=== PATIENT | female | born 1995 | race American Indian/Alaskan Native ===

== ENCOUNTER 2017-10-18 21:14 | Emergency (ER) | payer OTHER ==
[2017-10-19] MEDS ORDERED: LIDOCAINE VISCOUS 2% PO ONE (03:10)
--- NOTE | 2017-10-19 03:22 | Emergency Department Report ---
ED ENT HPI - General Chief complaint: Nausea/Vomiting/Diarrhea Stated complaint: THROWING UP BLOOD Time Seen by Provider: 10/19/17 02:59 Source: patient Mode of arrival: Ambulatory Limitations: No Limitations - History of Present Illness Initial comments: This is a 22-year-old female nontoxic, well nourished in appearance, no acute signs of distress presents to the ED with c/o of sore throat 1 week. Patient stated she was seen by her primary care doctor and diagnosed her with strep throat and patient was prescribed amoxicillin. Stated symptoms are getting worse. Today after taking Motrin and she stated she was drinking Gatorade and then started to vomit and so a small ting sputum which she believes was blood. Patient asked that denies any vomiting or hemoptysis. Denies any chest pain, shortness of breath, fever, chills, nausea, vomiting, headache or stiff neck. Patient stated she does have hoarseness. Patient denies difficulty breathing. Patient has decreased by mouth intake due to sore throat. patient denies any allergies. Past medical history includes hypertension. MD complaint: sore throat -: week(s) (1) Location: throat Severity: mild Severity scale (0 -10): 8 Quality: aching Consistency: constant Improves with: none Worsens with: swallowing Associated Symptoms: pain with swallowing, sore throat. denies: fever, cough, gum swelling, toothache, tinnitus, hearing loss, discharge from ear, rhinorrhea - Related Data Previous Rx's Medication Instructions Recorded Last Taken Type Acetamin/Codeine 120-12Mg/5 ml 10 ml PO Q6H PRN #6 oz 06/03/14 06/07/14 Rx [Tylenol/Codeine] Amoxicillin [Trimox CAP] 500 mg PO Q8H #30 capsule 06/03/14 06/07/14 Rx methylPREDNISolone [Medrol Dose 4 mg PO DAILY #1 packet 06/03/14 06/07/14 Rx Facundo] Clindamycin [Clindamycin CAP] 300 mg PO Q8H #20 cap 06/07/14 Unknown Rx oxyCODONE /ACETAMINOPHEN [Percocet 1 tab PO Q6HR PRN #14 tablet 06/07/14 Unknown Rx 5/325 mg] Ondansetron HCl 4 mg PO PRN PRN #10 solution 05/22/16 Unknown Rx Amoxicillin/K Clav Tab [Augmentin 1 tab PO Q12HR #20 tab 10/19/17 Unknown Rx 875 mg] Nystas/Diphen/Xyl Visc/Mylanta 15 ml MM Q6H 15 [place] [facility] [place] Rx [Magic Mouthwash] Allergies Allergy/AdvReac Type Severity Reaction Status Date / Time No Known Allergies Allergy Verified 06/07/14 11:02 ED Dental HPI - General Chief complaint: Nausea/Vomiting/Diarrhea Stated complaint: THROWING UP BLOOD Time Seen by Provider: 10/19/17 02:59 Source: patient Mode of arrival: Ambulatory Limitations: No Limitations - Related Data Previous Rx's Medication Instructions Recorded Last Taken Type Acetamin/Codeine 120-12Mg/5 ml 10 ml PO Q6H PRN #6 oz 06/03/14 06/07/14 Rx [Tylenol/Codeine] Amoxicillin [Trimox CAP] 500 mg PO Q8H #30 capsule 06/03/14 06/07/14 Rx methylPREDNISolone [Medrol Dose 4 mg PO DAILY #1 packet 06/03/14 06/07/14 Rx Facundo] Clindamycin [Clindamycin CAP] 300 mg PO Q8H #20 cap 06/07/14 Unknown Rx oxyCODONE /ACETAMINOPHEN [Percocet 1 tab PO Q6HR PRN #14 tablet 06/07/14 Unknown Rx 5/325 mg] Ondansetron HCl 4 mg PO PRN PRN #10 solution 05/22/16 Unknown Rx Amoxicillin/K Clav Tab [Augmentin 1 tab PO Q12HR #20 tab 10/19/17 Unknown Rx 875 mg] Nystas/Diphen/Xyl Visc/Mylanta 15 ml MM Q6H 15 Days [facility] 10/19/17 Unknown Rx [Magic Mouthwash] Allergies Allergy/AdvReac Type Severity Reaction Status Date / Time No Known Allergies Allergy Verified 06/07/14 11:02 ED Review of Systems ROS: Stated complaint: THROWING UP BLOOD Other details as noted in HPI Constitutional: denies: chills, fever Eyes: denies: eye pain, eye discharge, vision change ENT: throat pain. denies: ear pain Respiratory: denies: cough, shortness of breath, wheezing Cardiovascular: denies: chest pain, palpitations Endocrine: no symptoms reported Gastrointestinal: denies: abdominal pain, nausea, diarrhea Genitourinary: denies: urgency, dysuria, discharge Musculoskeletal: denies: back pain, joint swelling, arthralgia Skin: denies: rash, lesions Neurological: denies: headache, weakness, paresthesias Psychiatric: denies: anxiety, depression Hematological/Lymphatic: denies: easy bleeding, easy bruising ED Past Medical Hx - Past Medical History Previous Medical History?: No Hx Hypertension: No - Surgical History Past Surgical History?: No - Social History Smoking Status: Current Every Day Smoker Substance Use Type: Marijuana - Medications Home Medications: Home Medications Medication Instructions Recorded Confirmed Last Taken Type Acetamin/Codeine 120-12Mg/5 ml 10 ml PO Q6H PRN #6 oz 06/03/14 06/07/14 Rx [Tylenol/Codeine] Amoxicillin [Trimox CAP] 500 mg PO Q8H #30 capsule 06/03/14 06/07/14 06/07/14 Rx methylPREDNISolone [Medrol Dose 4 mg PO DAILY #1 packet 06/03/14 06/07/14 Rx Facundo] Clindamycin [Clindamycin CAP] 300 mg PO Q8H #20 cap 06/07/14 Unknown Rx oxyCODONE /ACETAMINOPHEN [Percocet 1 tab PO Q6HR PRN #14 tablet 06/07/14 Unknown Rx 5/325 mg] Ondansetron HCl 4 mg PO PRN PRN #10 solution 05/22/16 Unknown Rx Amoxicillin/K Clav Tab [Augmentin 1 tab PO Q12HR #20 tab 10/19/17 Unknown Rx 875 mg] Nystas/Diphen/Xyl Visc/Mylanta 15 ml MM Q6H 15 Days [facility] 10/19/17 Unknown Rx [Magic Mouthwash] ED Physical Exam - General Limitations: No Limitations General appearance: alert, in no apparent distress - Head Head exam: Present: atraumatic, normocephalic, normal inspection - Eye Eye exam: Present: normal appearance, PERRL, EOMI. Absent: scleral icterus, conjunctival injection, nystagmus, periorbital swelling, periorbital tenderness Pupils: Present: normal accommodation - ENT ENT exam: Present: mucous membranes moist, TM's normal bilaterally, normal external ear exam - Expanded ENT Exam Expanded Ear exam: Present: normal external inspection Mouth exam: Present: normal external inspection, tongue normal. Absent: drooling, trismus, muffled voice, tongue elevation, laceration Teeth exam: Present: normal inspection Throat exam: Positive: tonsillar erythema, tonsillomegaly (2+), tonsillar exudate, other (Uvula midline. ) - Neck Neck exam: Present: normal inspection, full ROM. Absent: tenderness, meningismus, lymphadenopathy, thyromegaly - Respiratory Respiratory exam: Present: normal lung sounds bilaterally. Absent: respiratory distress, wheezes, rales, rhonchi, stridor, chest wall tenderness, accessory muscle use, decreased breath sounds, prolonged expiratory - Cardiovascular Cardiovascular Exam: Present: regular rate, normal rhythm, normal heart sounds. Absent: bradycardia, tachycardia, irregular rhythm, systolic murmur, diastolic murmur, rubs, gallop - GI/Abdominal GI/Abdominal exam: Present: soft, normal bowel sounds. Absent: distended, tenderness, guarding, rebound, rigid, diminished bowel sounds - Rectal Rectal exam: Present: deferred - Extremities Exam Extremities exam: Present: normal inspection, full ROM, normal capillary refill. Absent: tenderness, pedal edema, joint swelling, calf tenderness - Back Exam Back exam: Present: normal inspection, full ROM. Absent: tenderness, CVA tenderness (R), CVA tenderness (L), muscle spasm, paraspinal tenderness, vertebral tenderness, rash noted - Neurological Exam Neurological exam: Present: alert, oriented X3, CN II-XII intact, normal gait, reflexes normal - Psychiatric Psychiatric exam: Present: normal affect, normal mood - Skin Skin exam: Present: warm, dry, intact, normal color. Absent: rash ED Course Vital Signs 10/18/17 22:32 Temperature 99.2 F Pulse Rate 83 Respiratory 18 Rate Blood Pressure 136/70 O2 Sat by Pulse 100 Oximetry - Reevaluation(s) Reevaluation #1: 10/19/17 03:23 Patient is speaking in full sentences with no signs of distress noted. ED Medical Decision Making - Lab Data Result diagrams: 10/19/17 03:24 10/19/17 03:24 - Medical Decision Making This is a 22-year-old female that presents with tonsillitis with exudate. Patient is stable and was examined by me. Patient received viscous lidocaine in the ED patient states symptoms of sore throat is improving. CBC, BMP, test obtained. CT contrast of his neck has been obtained to rule out tonsillar abscess and the radiologist with no abscess but positive for tonsillitis. Patient notified of CT results. No further questions noted by the patient. Patient discharged with Augmentin and patient was instructed to stop taking amoxicillin. Patient received Rocephin 1 g in the ed. Patient was instructed Follow-up with a primary care doctor in 3-5 days or if symptoms worsen and continue return to emergency room as soon as possible. At time time of discharge, the patient does not seem toxic or ill in appearance. No acute signs of distress noted. Patient agrees to discharge treatment plan of care. No further questions noted by the patient. Critical care attestation.: If time is entered above; I have spent that time in minutes in the direct care of this critically ill patient, excluding procedure time. ED Disposition Clinical Impression: Tonsillitis with exudate Disposition: DC- TO HOME OR SELFCARE Is pt being admited?: No Does the pt Need Aspirin: No Condition: Stable Instructions: Amoxicillin/Clavulanate Potassium (By mouth), Tonsillitis (ED) Additional Instructions: Follow-up with a primary care doctor/ENT doctor in 3-5 days or if symptoms worsen and continue return to emergency room as soon as possible. Stop taking amoxicillin and take Augmentin as prescribed. Prescriptions: Amoxicillin/K Clav Tab [Augmentin 875 mg] 1 tab PO Q12HR #20 tab Nystas/Diphen/Xyl Visc/Mylanta [Magic Mouthwash] 15 ml MM Q6H 15 [place] [facility] [place]: PRIMARY MD JOSEMANUEL [Primary Care Provider] - 3-5 Days SHERRI FLORES MD [Staff Physician] - 3-5 Days NEISHA JAMES MD [Staff Physician] - 3-5 Days [facility] [Outside] - 3-5 Days [facility] [Outside] - 3-5 Days Forms: Work/School Release Form(ED)
[2017-10-19] MEDS ORDERED: ROCEPHIN/NS 1 GM/50 ML 1 GM/50 ML BAG IV ONE (03:27)
[2017-10-19] MEDS ORDERED: ROCEPHIN 1 GM in NACL 0.9% 20 ML IV ONE (03:45)
[2017-10-19 03:50] LABS: Basophils % (Auto) 0.3 % (0.0-1.8); Eosinophils % (Auto) 0.1 % (0.0-4.3); Hematocrit 36.3 % (30.3-42.9); Hemoglobin 11.6 gm/dl (10.1-14.3); Mean Corpuscular HGB Conc 32 % (30-34); Mean Corpuscular Volume 75 fl (79-97); Platelet Count 282 K/mm3 (140-440); Red Blood Count 4.82 M/mm3 (3.65-5.03); Red Cell Distribution Width 16.1 % (13.2-15.2); White Blood Count 11.3 K/mm3 (4.5-11.0)
[2017-10-19 03:57] LABS: Mean Corpuscular Hemoglobin 24 pg (28-32)
[2017-10-19 04:10] LABS: Anion Gap 20 mmol/L; BUN/Creatinine Ratio 10; Blood Urea Nitrogen 7 mg/dL (7-17); Calcium 9.3 mg/dL (8.4-10.2); Carbon Dioxide 24 mmol/L (22-30); Chloride 99.9 mmol/L (98-107); Glucose 92 mg/dL (65-100); Potassium 4.2 mmol/L (3.6-5.0); Sodium 140 mmol/L (137-145)
[2017-10-19] MEDS ORDERED: NACL 0.9% 500 ML 500 ML IV ONE (04:35)
[2017-10-19] MEDS ORDERED: NACL ONE (05:00)
--- NOTE | 2017-10-19 05:57 | Cat Scan Report ---
FINAL REPORT EXAM: CT NECK W CON HISTORY: SORE THROAT R/O TONSIL ABSCESS TECHNIQUE: CT images are acquired through the neck following intravenous administration of contrast. Transaxial , coronal and sagittal reformations are provided. PRIORS: None. FINDINGS: There is enlargement of the left slightly greater than right palatine tonsil with heterogeneous enhancement. No focal fluid collection is identified. The central airway remains patent. Major vasculature of the neck is well opacified and also appears patent. Scattered bilateral reactive cervical lymph nodes are noted. The suprahyoid mucosal spaces of the neck are otherwise unremarkable. Intact cervical spine with normal alignment. Imaged portion of the brain is grossly unremarkable. The lung apices are also unremarkable. IMPRESSION: Enlargement and heterogeneous enhancement of the palatine tonsils is consistent with tonsillitis. No abscess formation, airway or vascular complication identified.
[2017-10-19 07:16] VITALS: BP 134/58
== END 2017-10-19 07:15 | disposition home or self-care (01) ==
LOC: ED 21:14
DX: J03.90 Acute tonsillitis, unspecified (principal); F17.200 Nicotine dependence, unspecified, uncomplicated; F12.10 Cannabis abuse, uncomplicated
CPT/HCPCS: 36415; 70491; 80048; 84703; 85025; 96361; 96374; 99284; J0696; J7040; Q9967

== ENCOUNTER 2019-03-11 12:03 | Emergency (ER) | payer SELFPAY ==
--- NOTE | 2019-03-11 12:49 | Emergency Department Report ---
Chief Complaint: Sore Throat Stated Complaint: TONSILS SWOLLEN/PAIN Time Seen by Provider: 03/11/19 12:46 - HPI History of Present Illness: Pt presents with right sided tonsillar swelling that began 3 days ago hx of peritonsillar abscess pain with swallowing spitting out secretions no N/V no fever no PMHx no allergies - Exam Vital Signs: Vital Signs 03/11/19 12:43 Temperature 99.0 F Pulse Rate 81 Respiratory 16 Rate Blood Pressure 133/72 [Left] O2 Sat by Pulse 100 Oximetry MSE screening note: Focused history and physical exam performed. Due to findings the following was ordered: labs, rapid strep, CT with contrast ED Disposition for MSE Condition: Stable
[2019-03-11 13:35] LABS: Basophils % (Auto) 0.6 % (0.0-1.8); Eosinophils % (Auto) 0.1 % (0.0-4.3); Hematocrit 38.2 % (30.3-42.9); Lymphocytes # (Auto) 1.7 K/mm3 (1.2-5.4); Lymphocytes % (Auto) 21.2 % (13.4-35.0); Mean Corpuscular HGB Conc 31 % (30-34); Monocytes # (Auto) 0.8 K/mm3 (0.0-0.8); Platelet Count 302 K/mm3 (140-440); Red Blood Count 5.56 M/mm3 (3.65-5.03)
[2019-03-11 13:38] LABS: Mean Corpuscular Volume 69 fl (79-97); Red Cell Distribution Width 20.1 % (13.2-15.2)
--- NOTE | 2019-03-11 14:41 | Emergency Department Report ---
ED ENT HPI - General Chief complaint: Sore Throat Stated complaint: TONSILS SWOLLEN/PAIN Time Seen by Provider: 03/11/19 12:46 Source: patient Mode of arrival: Ambulatory Limitations: No Limitations - History of Present Illness Initial comments: This is a 23-year-old female who presents to ED complaining of throat pain x couple of days, she describes pain as throbbing AND CONSTANT with pain with swallowing she admits fever now resolved but denies chills,cp, cough,n,v,abd pain MD complaint: sore throat - Related Data Previous Rx's Medication Instructions Recorded Last Taken Type Acetamin/Codeine 120-12Mg/5 ml 10 ml PO Q6H PRN #6 oz 06/03/14 06/07/14 Rx [Tylenol/Codeine] Amoxicillin [Trimox CAP] 500 mg PO Q8H #30 capsule 06/03/14 06/07/14 Rx methylPREDNISolone [Medrol Dose 4 mg PO DAILY #1 packet 06/03/14 06/07/14 Rx Facundo] oxyCODONE /ACETAMINOPHEN [Percocet 1 tab PO Q6HR PRN #14 tablet 06/07/14 Unknown Rx 5/325 mg] Ondansetron HCl 4 mg PO PRN PRN #10 solution 05/22/16 Unknown Rx Amoxicillin/K Clav Tab [Augmentin 1 tab PO Q12HR #20 tab 10/19/17 Unknown Rx 875 mg] Clindamycin [Clindamycin CAP] 300 mg PO Q8H #20 cap 03/11/19 Unknown Rx Ibuprofen [Motrin] 800 mg PO Q8HR #30 tablet 03/11/19 Unknown Rx Nystas/Diphen/Xyl Visc/Mylanta 15 ml MM Q6H 15 Days udc 03/11/19 Unknown Rx [Magic Mouthwash] Allergies Allergy/AdvReac Type Severity Reaction Status Date / Time No Known Allergies Allergy Verified 06/07/14 11:02 ED Dental HPI - General Chief complaint: Sore Throat Stated complaint: TONSILS SWOLLEN/PAIN Time Seen by Provider: 03/11/19 12:46 Source: patient Mode of arrival: Ambulatory Limitations: No Limitations - Related Data Previous Rx's Medication Instructions Recorded Last Taken Type Acetamin/Codeine 120-12Mg/5 ml 10 ml PO Q6H PRN #6 oz 06/03/14 06/07/14 Rx [Tylenol/Codeine] Amoxicillin [Trimox CAP] 500 mg PO Q8H #30 capsule 06/03/14 06/07/14 Rx methylPREDNISolone [Medrol Dose 4 mg PO DAILY #1 packet 06/03/14 06/07/14 Rx Facundo] oxyCODONE /ACETAMINOPHEN [Percocet 1 tab PO Q6HR PRN #14 tablet 06/07/14 Unknown Rx 5/325 mg] Ondansetron HCl 4 mg PO PRN PRN #10 solution 05/22/16 Unknown Rx Amoxicillin/K Clav Tab [Augmentin 1 tab PO Q12HR #20 tab 10/19/17 Unknown Rx 875 mg] Clindamycin [Clindamycin CAP] 300 mg PO Q8H #20 cap 03/11/19 Unknown Rx Ibuprofen [Motrin] 800 mg PO Q8HR #30 tablet 03/11/19 Unknown Rx Nystas/Diphen/Xyl Visc/Mylanta 15 ml MM Q6H 15 Days udc 03/11/19 Unknown Rx [Magic Mouthwash] Allergies Allergy/AdvReac Type Severity Reaction Status Date / Time No Known Allergies Allergy Verified 06/07/14 11:02 ED Review of Systems ROS: Stated complaint: TONSILS SWOLLEN/PAIN Other details as noted in HPI Comment: All other systems reviewed and negative ED Past Medical Hx - Past Medical History Previous Medical History?: No Hx Hypertension: No - Surgical History Past Surgical History?: No - Social History Smoking Status: Never Smoker Substance Use Type: None, Marijuana - Medications Home Medications: Home Medications Medication Instructions Recorded Confirmed Last Taken Type Acetamin/Codeine 120-12Mg/5 ml 10 ml PO Q6H PRN #6 oz 06/03/14 06/07/14 06/07/14 Rx [Tylenol/Codeine] Amoxicillin [Trimox CAP] 500 mg PO Q8H #30 capsule 06/03/14 06/07/14 06/07/14 Rx methylPREDNISolone [Medrol Dose 4 mg PO DAILY #1 packet 06/03/14 06/07/14 06/07/14 Rx Facundo] oxyCODONE /ACETAMINOPHEN [Percocet 1 tab PO Q6HR PRN #14 tablet 06/07/14 Unknown Rx 5/325 mg] Ondansetron HCl 4 mg PO PRN PRN #10 solution 05/22/16 Unknown Rx Amoxicillin/K Clav Tab [Augmentin 1 tab PO Q12HR #20 tab 10/19/17 Unknown Rx 875 mg] Clindamycin [Clindamycin CAP] 300 mg PO Q8H #20 cap 03/11/19 Unknown Rx Ibuprofen [Motrin] 800 mg PO Q8HR #30 tablet 03/11/19 Unknown Rx Nystas/Diphen/Xyl Visc/Mylanta 15 ml MM Q6H 15 Days udc 03/11/19 Unknown Rx [Magic Mouthwash] ED Physical Exam - General Limitations: No Limitations General appearance: alert, in no apparent distress - Head Head exam: Present: atraumatic, normocephalic - Eye Eye exam: Present: normal appearance - ENT ENT exam: Present: mucous membranes moist, TM's normal bilaterally - Expanded ENT Exam Expanded Teeth exam: Present: normal inspection Throat exam: Positive: tonsillar erythema, tonsillomegaly, tonsillar exudate - Neck Neck exam: Present: normal inspection, full ROM, lymphadenopathy. Absent: tenderness - Respiratory Respiratory exam: Present: normal lung sounds bilaterally. Absent: respiratory distress - Cardiovascular Cardiovascular Exam: Present: regular rate, normal rhythm. Absent: systolic murmur, diastolic murmur, rubs, gallop - GI/Abdominal GI/Abdominal exam: Present: soft, normal bowel sounds - Extremities Exam Extremities exam: Present: normal inspection - Back Exam Back exam: Present: normal inspection - Neurological Exam Neurological exam: Present: alert, oriented X3 - Psychiatric Psychiatric exam: Present: normal affect, normal mood - Skin Skin exam: Present: warm, dry, intact, normal color. Absent: rash ED Course Vital Signs 03/11/19 03/11/19 03/11/19 12:43 15:34 16:13 Temperature 99.0 F Pulse Rate 81 78 Respiratory 16 20 16 Rate Blood Pressure 133/72 130/70 [Left] O2 Sat by Pulse 100 100 Oximetry ED Medical Decision Making - Lab Data Result diagrams: 03/11/19 13:18 03/11/19 13:48 - Medical Decision Making 23 y o f presents with pharyngitis Due to clinical diagnosis pt will be treated with antibiotics VSS, pt is in no distress, speaking in clear sentenses no airway compromise discussed f/u with pcp Critical care attestation.: If time is entered above; I have spent that time in minutes in the direct care of this critically ill patient, excluding procedure time. ED Disposition Clinical Impression: Tonsillitis Disposition: DC-01 TO HOME OR SELFCARE Is pt being admited?: No Does the pt Need Aspirin: No Condition: Stable Instructions: Peritonsillar Abscess (ED), Tonsillitis (ED) Additional Instructions: Make sure to follow up with the primary care physician as discussed. Take all your medications as you've been prescribed. If you have any worsening symptoms or develop new symptoms please return to ED immediately. Prescriptions: Clindamycin [Clindamycin CAP] 300 mg PO Q8H #20 cap Nystas/Diphen/Xyl Visc/Mylanta [Magic Mouthwash] 15 ml MM Q6H 15 Days udc Ibuprofen [Motrin] 800 mg PO Q8HR #30 tablet Referrals: RAJ DUKE MD [Primary Care Provider] - 3-5 Days [facility] [Provider Group] - 3-5 Days [facility] [Provider Group] - 3-5 Days Forms: Work/School Release Form(ED) Time of Disposition: 15:58
[2019-03-11] MEDS ORDERED: DELTASONE PO ONE (15:24)
[2019-03-11] MEDS ORDERED: TYLENOL PO ONE (15:25)
[2019-03-11 16:02] LABS: BUN/Creatinine Ratio 18; Blood Urea Nitrogen 14 mg/dL (7-17); Calcium 10.4 mg/dL (8.4-10.2); Hemolysis Index 2
[2019-03-11 16:15] VITALS: BP 130/70
== END 2019-03-11 16:13 | disposition home or self-care (01) ==
LOC: ED 12:03
DX: J03.90 Acute tonsillitis, unspecified (principal); F12.10 Cannabis abuse, uncomplicated; Z79.899 Other long term (current) drug therapy
CPT/HCPCS: 36415; 80048; 85025; 87116; 87430; 99283; J7512